=== PATIENT | male | born 1985 | race Caucasian/White ===

== ENCOUNTER 2023-11-07 14:06 | Inpatient (IN) ==
[2023-11-07 16:16] LABS: Urine Benzodiazepine Screen None Detected (None Detect); Urine Cannabinoids Screen None Detected (None Detect); Urine Opiates Screen None Detected (None Detect)
[2023-11-07] MEDS ORDERED: Al Hydrox/Mg Hydrox/Simet LIQ 30 ML UDC PO PRN (22:08)
[2023-11-08] MEDS: Vitamin THERAPEUTIC TAB PO SCH (08:27)
[2023-11-08 08:35] LABS: HDL Cholesterol 53.3 mg/dL
[2023-11-08] MEDS ORDERED: Albuterol HFA INHALER 8 gm MDI INH PRN (12:14)
[2023-11-08 13:01] LABS: Albumin 4.3 g/dL (3.2-5.2); Albumin/Globulin Ratio 1.7 (1-3); Creatinine, Serum 1.08 mg/dL (0.67-1.17); Globulin 2.5 g/dL (2-4); Total Bilirubin 0.3 mg/dL (0.2-1.0); Total Protein 6.8 g/dL (6.4-8.9); eGFR CKD-EPI 90.6 (>60)
[2023-11-08 13:59] LABS: ABS Basophils 0.1 10^3/uL (0.0-0.1); ABS Eosinophils 0.2 10^3/uL (0.0-0.5); ABS Lymphocytes 1.3 10^3/uL (1.0-4.8); ABS Monocytes 0.4 10^3/uL (0.0-1.1); ABS Neutrophils 4.1 10^3/uL (1.5-7.6); Eosinophil % 2.5 %; Hematocrit 42.9 % (38-53); Hemoglobin 14.3 g/dL (13.2-16.3); Mean Corpuscular Hemoglobin 29.8 pg (27-33); Mean Corpuscular Hgb Conc 33.5 g/dL (31-36); Mean Platelet Volume 8.4 fL (7.5-11.2); Platelet Count 230 10^3/uL (150-450); Red Blood Count 4.82 10^6/uL (4.06-5.63); Red Cell Distribution Width 13.7 % (12-17)
[2023-11-09] MEDS: Vitamin THERAPEUTIC TAB PO SCH (08:45)
[2023-11-09 10:25] VITALS: BP 133/83
== END 2023-11-09 13:15 | disposition home or self-care (01) | DRG 754 ==
LOC: ED 14:06 → EDHOLD 21:45 → BSU 22:25
PROVIDERS: ADMIT Psychiatry & Neurology Psychiatry; ATTEND Psychiatry & Neurology Psychiatry